=== PATIENT | male | born 1995 | race Hispanic/Latino ===

== ENCOUNTER 2018-09-11 05:16 | Emergency (ER) | payer BC, OTHER ==
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
[2018-09-11 05:38] VITALS: RESP 18
[2018-09-11 05:54] LABS: HEMOGLOBIN 15.2 g/dL (14.0-18.0); MEAN CELL VOLUME 86.6 fl (80.0-105.0); MEAN CORPUSCULAR HEMOGLOBIN 30.3 pg (25.0-35.0); MEAN PLATELET VOLUME 9.8 fl (7.0-11.0); RBC 5.01 10^6/uL (3.5-6.1); RED CELL DISTRIBUTION WIDTH 12.6 % (11.5-14.5); WHITE BLOOD COUNT 8.8 10^3/uL (4.5-11.0)
[2018-09-11 06:07] LABS: ALB/GLOB RATIO 1.5 (1.1-1.8); ALBUMIN 4.7 g/dL (3.0-4.8); ALT/SGPT 44 U/L (7-56); AST/SGOT 40 U/L (17-59); BLOOD UREA NITROGEN 19 mg/dL (7-21); CALCIUM 8.6 mg/dL (8.4-10.5); GFR NON-AFRICAN AMERICAN > 60
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
--- NOTE | 2018-09-11 10:27 | RAD ---
Date of service: 09/11/2018 HISTORY: medical clearance COMPARISON: No prior. FINDINGS: LUNGS: No active pulmonary disease. PLEURA: No significant pleural effusion identified, no pneumothorax apparent. CARDIOVASCULAR: No aortic atherosclerotic calcification present. Normal cardiac size. No pulmonary vascular congestion. OSSEOUS STRUCTURES: No significant abnormalities. VISUALIZED UPPER ABDOMEN: Normal. OTHER FINDINGS: None. IMPRESSION: No active disease.
--- NOTE | 2018-09-11 10:35 | CARD ---
APPROVED REPORT Date of service: 09/11/2018 EKG Measurement Heart [id number] <Conclusion> Normal sinus rhythm Left axis deviation Minimal voltage criteria for LVH, may be normal variant Abnormal ECG
[2018-09-11 12:42] VITALS: O2SAT 99
[2018-09-11 12:50] LABS: BARBITURATES, UR NEGATIVE (NEGATIVE); BENZODIAZEPINES, UR NEGATIVE (NEGATIVE); OPIATES, UR NEGATIVE (NEGATIVE); PHENCYCLIDINE, UR NEGATIVE (NEGATIVE)
[2018-09-11 13:16] VITALS: BP 118/76; PULSE 80; TEMP 98.2
== END 2018-09-11 13:16 | disposition home or self-care (01) ==
LOC: ED 05:16
DX: F10.129 Alcohol abuse with intoxication, unspecified (principal); F19.10 Other psychoactive substance abuse, uncomplicated
CPT/HCPCS: 71045; 80053; 85027; 93005; 99283; G0480

== ENCOUNTER 2018-09-16 03:09 | Emergency (ER) | payer BC ==
[2018-09-16 03:24] VITALS: BMI 34.4
[2018-09-16 03:50] VITALS: TEMP 97.2
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
[2018-09-16] MEDS ORDERED: TDAP Vaccine 0.5 mL Syr IM ONE (04:14)
[2018-09-16 06:22] VITALS: BP 141/82; PULSE 89; RESP 20; O2SAT 100
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
== END 2018-09-16 06:19 ==
LOC: ED 03:09
DX: Z77.098 Contact with and (suspected) exposure to other hazardous, chiefly nonmedicinal, chemicals (principal); F10.10 Alcohol abuse, uncomplicated; Z23 Encounter for immunization; Z65.3 Problems related to other legal circumstances